=== PATIENT | female | born 1990 | race Two or more races ===

== ENCOUNTER 2019-09-29 16:14 | Inpatient (IN) | payer OTHER ==
[~2019-09-29] VITALS: Ht 165.1 cm; Wt 69.9 kg
[2019-09-29] MEDS ORDERED: PRENATAL 19 TA1 EACH PO (18:36)
[2019-09-29] MEDS ORDERED: ASPIR 8181 MG PO (18:37)
[2019-09-29] MEDS ORDERED: SINGULAIR 10MG10 MG PO (18:40)
[2019-09-29] MEDS ORDERED: LEVALBUTER1.25 MG/0. (18:43)
[2019-09-29] MEDS ORDERED: SYMBICORT 16010.2 GM (18:47)
[2019-09-30] MEDS ORDERED: ATABEX DHA 200200 MG PO (14:46)
== END 2019-10-03 12:27 | disposition home or self-care (01) | DRG 833 ==
LOC: LDR 16:14 → OB/GYN 10-01 08:50
PROVIDERS: ADMIT Obstetrics & Gynecology
PROC: 3E0F7GC Introduction of Other Therapeutic Substance into Respiratory Tract, Via Natural or Artificial Opening (ICD-10-PCS; principal; 2019-09-30)
PROC: 4A1HXFZ Monitoring of Products of Conception, Cardiac Rhythm, External Approach (ICD-10-PCS; 2019-09-30)
DX: O60.03 Preterm labor without delivery, third trimester (principal); J20.0 Acute bronchitis due to Mycoplasma pneumoniae; Z3A.30 30 weeks gestation of pregnancy

== ENCOUNTER 2019-10-25 08:55 | Outpatient (CLI) | payer OTHER ==
[~2019-10-25 08:55] MED LIST: ASPIR 8181 MG PO; ATABEX DHA 200200 MG PO; LEVALBUTER1.25 MG/0.; PRENATAL 19 TA1 EACH PO; SINGULAIR 10MG10 MG PO; SYMBICORT 16010.2 GM
== END 2019-10-25 10:01 | disposition home or self-care (01) ==
LOC: NST 08:55
DX: Z34.83 Encounter for supervision of other normal pregnancy, third trimester (principal)

== ENCOUNTER 2019-11-11 09:40 | Outpatient (CLI) | payer OTHER | END 2019-11-11 10:57 | disposition home or self-care (01) | LOC: NST 09:40 | DX: Z34.83 Encounter for supervision of other normal pregnancy, third trimester (principal) ==

== ENCOUNTER 2019-11-11 10:41 | Outpatient (CLI) | payer OTHER | END 2019-11-11 10:52 | disposition home or self-care (01) | LOC: LAB 10:41 | DX: Z34.80 Encounter for supervision of other normal pregnancy, unspecified trimester (principal) ==

== ENCOUNTER 2019-11-11 21:02 | Inpatient (IN) | payer OTHER ==
[~2019-11-11] VITALS: Ht 160 cm; Wt 71.7 kg
== END 2019-11-13 14:50 | disposition home or self-care (01) | DRG 805 ==
LOC: LDR 21:02 → SURG-SUITE 22:46 → OB/GYN 12-08 11:45
PROVIDERS: ADMIT Obstetrics & Gynecology
PROC: 10E0XZZ Delivery of Products of Conception, External Approach (ICD-10-PCS; principal; 2019-11-11)
PROC: 0KQM0ZZ Repair Perineum Muscle, Open Approach (ICD-10-PCS; 2019-11-11)
PROC: 4A1HXCZ Monitoring of Products of Conception, Cardiac Rate, External Approach (ICD-10-PCS; 2019-11-11)
DX: O70.1 Second degree perineal laceration during delivery (principal); O60.14X0 Preterm labor third trimester with preterm delivery third trimester, not applicable or unspecified; Z37.0 Single live birth; Z3A.36 36 weeks gestation of pregnancy